=== PATIENT | female | born 1990 | race Caucasian/White ===

== ENCOUNTER 2021-05-02 10:35 | Emergency (ER) | payer OTHER ==
[2021-05-02] MEDS ORDERED: HYDROmorphone 0.5 MG/0.5 ML Syringe IVPUSH ONE ×2 (10:49→13:21)
[2021-05-02] MEDS ORDERED: Ondansetron 4 MG/2 ML SDV IVPUSH ONE (10:50)
--- NOTE | 2021-05-02 10:58 | EDM.PDOC ---
"ED HPI GENERAL MEDICAL PROBLEM - General Chief Complaint: Gastrointestinal Problem Stated Complaint: [id number] FOOD POISONING AB PAIN BACK PAIN Time Seen by Provider: 05/02/21 10:45 Source of Information: Reports: Patient History Limitations: Reports: No Limitations - History of Present Illness INITIAL COMMENTS - FREE TEXT/NARRATIVE: This 31 yo female patient reports to the ED with a week long history of upper abdominal pain, loss of appetite and diarrhea when she eats. The patient reports she had a bologna and cheese sandwich this morning, went to bed, but was awaken by increased abdominal pain. The patient reports she does have a history of ulcers, but is not on any medications at this time for her ulcers. The patient has not take anything for her current symptoms. 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 Onset Date: 04/25/21 Duration: Constant, Getting Worse Location: Reports: Abdomen (upper abdomen) Quality: Reports: Ache, Sharp, Stabbing Severity: Severe Improves with: Reports: None Worsens with: Reports: None Context: Reports: Other Associated Symptoms: Reports: Loss of Appetite Bilateral Upper Abdomen Pain Score (Numeric/FACES): 10 - Related Data Allergies Allergy/AdvReac Type Severity Reaction Status Date / Time tramadol Allergy Agitation Verified 05/02/21 10:48 Home Meds: Home Meds . 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 ED EXAM, GI/ABD - Physical Exam Exam: See Below Exam Limited By: No Limitations General Appearance: Alert, WD/WN, Moderate Distress, Obese Eyes: Bilateral: Normal Appearance, EOMI Ears: Normal External Exam, Normal Canal, Hearing Grossly Normal, Normal TMs Nose: Normal Inspection, Normal Mucosa, No Blood Throat/Mouth: Normal Inspection, Normal Lips, Normal Teeth, Normal Gums, Normal Oropharynx, Normal Voice, No Airway Compromise Head: Atraumatic, Normocephalic Neck: Normal Inspection, Supple, Non-Tender, Full Range of Motion Respiratory/Chest: No Respiratory Distress, Lungs Clear, Normal Breath Sounds, No Accessory Muscle Use, Chest Non-Tender Cardiovascular: Normal Peripheral Pulses, Regular Rate, Rhythm, No Edema, No Gallop, No JVD, No Murmur, No Rub GI/Abdominal Exam: Normal Bowel Sounds, No Organomegaly, No Distention, No Abnormal Bruit, No Mass, Pelvis Stable, Tender (upper abdomen (increased pain to palpation of right upper quadrand and epigastric areas)) (Female) Exam: Deferred Rectal (Female) Exam: Deferred Back Exam: Normal Inspection, Full Range of Motion, NT Extremities: Normal Inspection, Normal Range of Motion, Non-Tender, Normal Capillary Refill, No Pedal Edema Neurological: Alert, Oriented Psychiatric: Normal Affect, Normal Mood Skin Exam: Warm, Dry, Intact, Normal Color, No Rash Lymphatic: No Adenopathy Course - Vital Signs Last Recorded V/S: Last Vital Signs Temp 97.9 F 05/02/21 10:44 Pulse 96 05/02/21 10:44 Resp 16 05/02/21 10:44 BP 124/94 H 05/02/21 10:44 Pulse Ox 99 05/02/21 10:44 - Orders/Labs/Meds Orders: Active Orders 24 hr Category Date Time Status Pantoprazole 40 MG in Sodium Chloride 0.9% @ 20 MLS/HR( Med 05/02/21 14:30 Ordered 100ml) Pantoprazole [ProTONIX IV] 40 mg Sodium Chloride 0.9% [Normal Saline] 100 ml IV .CONTINUOS Sodium Chloride 0.9% [Normal Saline] 1,000 ml Med 05/02/21 11:00 Active IV ASDIRECTED Medication Orders Sodium Chloride (Normal Saline) 1,000 mls @ 125 mls/hr IV ASDIRECTED ANTON Last Admin: 05/02/21 11:25 Dose: 125 mls/hr Documented by: WILBER Pantoprazole Sodium 40 mg/ (Sodium Chloride) 100 mls @ 20 mls/hr IV .CONTINUOS ANTON Last Admin: 05/02/21 14:35 Dose: 20 mls/hr Documented by: WILBER Labs: Laboratory Tests 05/02/21 05/02/21 Range/Units 10:57 11:15 WBC 10.0 (5.0-10.0) 10^3/uL RBC 4.68 (4.2-5.4) 10^6/uL Hgb 12.9 (12.0-16.0) g/dL Hct 39.0 (37.0-47.0) % MCV 83.3 (80-100) fL MCH 27.6 (27.0-34.0) pg MCHC 33.1 (33.0-35.0) g/dL Plt Count 336 (150-450) 10^3/uL Neut % (Auto) 59.5 (42.2-75.2) % Lymph % (Auto) 22.6 (20.5-50.1) % [place] % (Auto) 11.0 H (2-8) % Eos % (Auto) 6.5 H (1.0-3.0) % Baso % (Auto) 0.4 (0.0-1.0) % Sodium 144 (136-145) mmol/L Potassium 3.0 L (3.5-5.1) mmol/L Chloride 105 (98-107) mmol/L Carbon Dioxide 26 (21-32) mmol/L Anion Gap 16.0 H (7-13) mEq/L BUN 11 (7-18) mg/dL Creatinine 0.90 (0.55-1.02) mg/dL Est Cr Clr Drug Dosing 73.55 mL/min Estimated GFR (MDRD) > 60 BUN/Creatinine Ratio 12.2 (No establ ref range) Glucose 109 H (70-99) mg/dL Calcium 8.2 L (8.5-10.1) mg/dL Total Bilirubin 0.4 (0.2-1.0) mg/dL AST 31 (15-37) U/L ALT 55 (14-59) U/L Alkaline Phosphatase 87 (46-116) U/L Total Protein 7.3 (6.4-8.2) g/dL Albumin 3.3 L (3.4-5.0) g/dL Globulin 4.0 Albumin/Globulin Ratio 0.83 Amylase 18 L (25-115) U/L Lipase 52 L (73-393) U/L Meds: Medications Generic Name Dose Route Start Last Admin Trade Name Freq PRN Reason Stop Dose Admin Sodium Chloride 1,000 mls @ 125 mls/hr 05/02/21 11:00 05/02/21 11:25 Normal Saline IV 125 mls/hr ASDIRECTED ANTON Administration Pantoprazole Sodium 40 mg/ 100 mls @ 20 mls/hr 05/02/21 14:30 05/02/21 14:35 Sodium Chloride IV 20 mls/hr .CONTINUOS ANTON Administration Discontinued Medications Generic Name Dose Route Start Last Admin Trade Name Sonya PRN Reason Stop Dose Admin Al Hydroxide/Mg Hydroxide 30 ml 05/02/21 14:20 05/02/21 14:35 Gi Cocktail Oral Solution 30 Ml PO 05/02/21 14:21 30 ml ONETIME ONE Administration Hydromorphone HCl 0.5 mg 05/02/21 10:49 05/02/21 11:02 Hydromorphone 0.5 Mg/0.5 Ml Syringe IVPUSH 05/02/21 10:50 0.5 mg ONETIME ONE Administration Hydromorphone HCl 0.5 mg 05/02/21 13:21 05/02/21 13:42 Hydromorphone 0.5 Mg/0.5 Ml Syringe IVPUSH 05/02/21 13:22 0.5 mg ONETIME ONE Administration Iopamidol 100 ml 05/02/21 12:13 05/02/21 13:29 Iopamidol 612 Mg/Ml 100 Ml Bottle IVPUSH 05/02/21 12:14 75 ml ONETIME ONE Administration Ondansetron HCl 4 mg 05/02/21 10:50 05/02/21 11:02 Ondansetron 4 Mg/2 Ml Sdv IVPUSH 05/02/21 10:51 4 mg ONETIME ONE Administration - Radiology Interpretation Free Text/Narrative:: [facility] Final Radiology Report Call: [phone] assistance Online chat: [email or web address] Name: RAYSA GARCIA Age: 31Years F Date: 05/02/2021 SSN: -- : [id number] Study: CT ABDOMEN PELVIS W CONT Requesting Physician: Zaid Barnes Images: [id number] Addl Studies: Provided Clinical History: Upper abdominal pain Contrast: With Contrast Medium: Isovue Contrast Amount: 75 mL Contrast Method: Intravenous (IV) Page 1 of 2 PROCEDURE INFORMATION: Exam: CT Abdomen And Pelvis With Contrast Exam date and time: 05/02/2021 1:01 PM Age: 31 years old Clinical indication: Abdominal pain; Epigastric; Prior surgery; Surgery type: Hystercetomy; Additional info: Upper abdominal pain TECHNIQUE: Imaging protocol: Computed tomography of the abdomen and pelvis with contrast. Radiation optimization: All CT scans at this facility use at least one of these dose optimization techniques: automated exposure control; mA and/or kV adjustment per patient size (includes targeted exams where dose is matched to clinical indication); or iterative reconstruction. Contrast material: ISOVUE; Contrast volume: 75 ml; Contrast route: INTRAVENOUS (IV); COMPARISON: No relevant prior studies available. FINDINGS: Liver: Diffuse fatty infiltration of the liver. Gallbladder and bile ducts: Normal. No calcified stones. No ductal dilation. Pancreas: Fatty infiltration of the pancreatic parenchyma. Spleen: Normal. No splenomegaly. Adrenal glands: Normal. No mass. Kidneys and ureters: Normal. No hydronephrosis. Stomach and bowel: Mild thickening of the wall of the gastric antrum with associated edema. This could be due to gastritis or ulcer disease.. No obstruction. No mucosal thickening. Appendix: No evidence of appendicitis. Intraperitoneal space: Unremarkable. No free air. No significant fluid collection. Vasculature: Unremarkable. No abdominal aortic aneurysm. RAYSA GARCIA | Final Radiology Report CONFIDENTIALITY STATEMENT This report is intended only for use by the referring physician, and only in accordance with law. If you received this in error, call [phone]. Page 2 of 2 Lymph nodes: Unremarkable. No enlarged lymph nodes. Urinary bladder: Unremarkable as visualized. Reproductive: Hysterectomy. Bones/joints: Unremarkable. No acute fracture. Soft tissues: Unremarkable. IMPRESSION: 1. Findings suspicious for possible gastritis or ulcer disease. 2. Fatty infiltration of the liver and pancreatic parenchyma. Thank you for allowing us to participate in the care of your patient. Dictated and Authenticated by: Marli Crandall MD 05/02/2021 2:06 PM Central Time ([place] & [place]) Departure - Departure Time of Disposition: 15:01 Disposition: Home, Self-Care 01 Condition: Fair Clinical Impression: Peptic ulcer disease - Discharge Information *PRESCRIPTION DRUG MONITORING PROGRAM REVIEWED*: Not Applicable *COPY OF PRESCRIPTION DRUG MONITORING REPORT IN PATIENT ANTWAN: Not Applicable Instructions: Peptic Ulcer, [id number] Forms: ED Department Discharge Care Plan Goals: The patient was advised of the examination, lab and CT results during the visit. The patient was given IV pain medication, IV Protonix and an oral GI cocktail wh ile in the ED. The patient was discharged with a script for Omeprazole (20 mg) #30 to take 1 by mouth daily for 30 minutes prior to eating. The patient should follow-up with her primary care facility for continued evaluation and further management. If the patient has any additional symptoms or concerns, the patient should either return to the emergency department of visit her primary care facility. Sepsis Event Note (ED) - Evaluation Sepsis Screening Result: No Definite Risk - Focused Exam Vital Signs: Vital Signs Temp Pulse Resp BP Pulse Ox 05/02/21 10:44 97.9 F 96 16 124/94 H 99 - My Orders Last 24 Hours: My Active Orders 05/02/21 11:00 Sodium Chloride 0.9% [Normal Saline] 1,000 ml IV ASDIRECTED 05/02/21 14:30 Pantoprazole 40 MG in Sodium Chloride 0.9% @ 20 MLS/HR(100ml) Pantoprazole [ProTONIX IV] 40 mg Sodium Chloride 0.9% [Normal Saline] 100 ml IV .CONTINUOS - Assessment/Plan Last 24 Hours: My Active Orders 05/02/21 11:00 Sodium Chloride 0.9% [Normal Saline] 1,000 ml IV ASDIRECTED 05/02/21 14:30 Pantoprazole 40 MG in Sodium Chloride 0.9% @ 20 MLS/HR(100ml) Pantoprazole [ProTONIX IV] 40 mg Sodium Chloride 0.9% [Normal Saline] 100 ml IV .JASPREET EMMANUEL"
[2021-05-02] MEDS ORDERED: Sodium Chloride 0.9% 1,000 ML IV SCH (11:00)
[2021-05-02 11:47] LABS: CHLORIDE,CL 105 mmol/L (98-107); SODIUM,NA 144 mmol/L (136-145)
[2021-05-02] MEDS ORDERED: Iopamidol 612 MG/ML 100 ML Bottle IVPUSH ONE (12:13)
--- NOTE | 2021-05-02 14:07 | CT ---
PROCEDURE INFORMATION: Exam: CT Abdomen And Pelvis With Contrast Exam date and time: 05/02/2021 1:01 PM Age: 31 years old Clinical indication: Abdominal pain; Epigastric; Prior surgery; Surgery type: Hystercetomy; Additional info: Upper abdominal pain TECHNIQUE: Imaging protocol: Computed tomography of the abdomen and pelvis with contrast. Radiation optimization: All CT scans at this facility use at least one of these dose optimization techniques: automated exposure control; mA and/or kV adjustment per patient size (includes targeted exams where dose is matched to clinical indication); or iterative reconstruction. Contrast material: ISOVUE; Contrast volume: 75 ml; Contrast route: INTRAVENOUS (IV); COMPARISON: No relevant prior studies available. FINDINGS: Liver: Diffuse fatty infiltration of the liver. Gallbladder and bile ducts: Normal. No calcified stones. No ductal dilation. Pancreas: Fatty infiltration of the pancreatic parenchyma. Spleen: Normal. No splenomegaly. Adrenal glands: Normal. No mass. Kidneys and ureters: Normal. No hydronephrosis. Stomach and bowel: Mild thickening of the wall of the gastric antrum with associated edema. This could be due to gastritis or ulcer disease.. No obstruction. No mucosal thickening. Appendix: No evidence of appendicitis. Intraperitoneal space: Unremarkable. No free air. No significant fluid collection. Vasculature: Unremarkable. No abdominal aortic aneurysm. Lymph nodes: Unremarkable. No enlarged lymph nodes. Urinary bladder: Unremarkable as visualized. Reproductive: Hysterectomy. Bones/joints: Unremarkable. No acute fracture. Soft tissues: Unremarkable. IMPRESSION: 1. Findings suspicious for possible gastritis or ulcer disease. 2. Fatty infiltration of the liver and pancreatic parenchyma.
[2021-05-02] MEDS ORDERED: GI Cocktail Oral Solution 30 ML PO ONE (14:20)
[2021-05-02] MEDS ORDERED: Pantoprazole 40 MG in Sodium Chloride 0.9% 100 ML IV SCH (14:30)
== END 2021-05-02 15:07 | disposition home or self-care (01) ==
LOC: DL.ED 10:35
DX: K27.9 Peptic ulcer, site unspecified, unspecified as acute or chronic, without hemorrhage or perforation (principal); E66.9 Obesity, unspecified; Z68.42 Body mass index [BMI] 45.0-49.9, adult; Z88.5 Allergy status to narcotic agent
CPT/HCPCS: 36415; 74177; 80053; 82150; 83690; 85025; 96374; 96375; 96376; 99283; 99284; A9270; C9113; J1170; J2405; J7030; Q9967